=== PATIENT | female | born 1950 | race American Indian/Alaskan Native ===

== ENCOUNTER 2018-04-13 10:19 | Outpatient (CLI) | payer MEDICARE, OTHER ==
--- NOTE | 2018-04-13 15:58 | Mammography Report ---
BILATERAL DIGITAL SCREENING MAMMOGRAM with CAD: 04/13/18 10:19:00 CLINICAL: Routine screening. COMPARISON:06/14/16 FINDINGS: The breasts are heterogeneously dense, which may obscure small masses. No mass, architectural distortion or suspicious calcifications. IMPRESSION: No mammographic evidence of malignancy. BI-RADS CATEGORY: 1 - - Negative RECOMMENDATION: Routine mammographic screening in one year. COMMENT: Patient follow-up letters are generated by our [employer] application.
== END 2018-04-13 10:20 | disposition home or self-care (01) ==
LOC: MAMMO 10:19
PROVIDERS: ATTEND Internal Medicine Geriatric Medicine
DX: Z12.31 Encounter for screening mammogram for malignant neoplasm of breast (principal)
CPT/HCPCS: 77067

== ENCOUNTER 2020-05-15 08:12 | Outpatient (CLI) | payer MEDICARE, OTHER ==
--- NOTE | 2020-05-15 11:52 | Mammography Report ---
DIGITAL SCREENING MAMMOGRAM WITH CAD, 05/15/2020 CLINICAL INFORMATION / INDICATION: Routine screening mammography. TECHNIQUE: Digital bilateral 2D mammography was obtained in the craniocaudal and mediolateral obliqu e projections. This examination was interpreted with the benefit of Computer-Aided Detection analysis . COMPARISON: 04/13/2018 FINDINGS: Breast Density: The breasts are heterogeneously dense, which may obscure small masses. No dominant mass, suspicious calcifications, or architectural distortion in either breast. IMPRESSION: No mammographic evidence of malignancy. Follow up recommendation: Routine yearly BI-RADS Category 1: Negative. A "normal" or negative report should not discourage follow up or biopsy of a clinically significant f inding. A written summary of these findings will be mailed to the patient. The patient will be entered into a mammography reporting system which will generate a reminder letter for the patient's next appointmen t at the appropriate interval. The [employer] recommends yearly mammograms starting at age 40 and continuing as l que as a woman is in good health. Breast MRI is recommended for women with an approximate 20-25% or greater lifetime risk of breast cancer, including women with a strong family history of breast or ova leslee cancer or who have been treated for Hodgkin's disease. Signer Name: Moncho Valenzuela MD Signed: 05/15/2020 11:48 AM Workstation Name: [id number]
--- NOTE | 2020-05-15 14:18 | Mammography Report ---
DEXA BONE DENSITY SCAN INDICATION: OSTEOPOROSIS. COMPARISON: DEXA scan from 06/14/2016 LUMBAR SPINE (L1-L4): Bone mineral density (BMD) is 0.923 g/cm2. T-score is -1.1 (standard deviations of Young Adult mean). Z-score is 0.1 (standard deviations of Age Matched mean). There has been a 4.5% increase in bone mineral density in this region since 2016. LEFT FEMORAL NECK: Bone mineral density (BMD) is 0.625 g/cm2. T-score is -2.0 (standard deviations of Young Adult mean). Z-score is -0.9 (standard deviations of Age Matched mean). There has been a 7.6% increase in bone mineral density in this region since 2016. IMPRESSION: 1. WHO Classification: Osteopenia. Fracture Risk: Increased. Signer Name: Hansel Gómez MD Signed: 05/15/2020 2:14 PM Workstation Name: [id number]
== END 2020-05-15 08:13 | disposition home or self-care (01) ==
LOC: MAMMO 08:12
PROVIDERS: ATTEND Internal Medicine Geriatric Medicine
DX: Z12.31 Encounter for screening mammogram for malignant neoplasm of breast (principal); Z13.820 Encounter for screening for osteoporosis; N64.89 Other specified disorders of breast; M81.0 Age-related osteoporosis without current pathological fracture
CPT/HCPCS: 77067; 77080